=== PATIENT | female | born 1995 | race Caucasian/White ===

== ENCOUNTER 2025-02-01 06:06 | Day surgery (SDC) | payer OTHER, SELFPAY ==
[2025-01-25 08:50] LABS: Hemoglobin 13.3 g/dL (12.0-16.0); Mean Corp Hgb Conc. 34.1 g/dL (33.0-37.0); Mean Corpuscular Hgb 31.5 pg (27.0-31.0); Mean Corpuscular Volume 92.4 fL (81.0-99.0); Mean Platelet Volume 9.7 fL (7.4-10.4); Platelet Count 280 10^3/uL (130-400); Red Blood Cell Count 4.22 10^6/uL (4.20-5.40); Red Cell Dist. Width 12.2 % (11.5-14.5); White Blood Cell Count 5.4 10^3/uL (4.8-10.8)
[2025-01-25 09:27] LABS: Blood Urea Nitrogen 13 mg/dl (7-17); Calcium 9.5 mg/dl (8.4-10.2); Carbon Dioxide 30 mmol/L (22-30); Chloride 106 mmol/L (98-107); Glucose 87 mg/dl (70-99); Potassium 4.2 mmol/L (3.5-5.1); Sodium 143 mmol/L (135-145); eGFR > 60.00
[2025-01-25 10:16] LABS: % Basophils 0.9 % (0-2); % Eosinophils 2.6 % (0-6); % Immature Granulocytes 0.2 % (0-0.5); % Lymphocytes 45.4 % (20.5-51.1); % Monocytes 8.1 % (1.7-9.3); % Neutrophils 42.8 % (42.2-75.2); Absolute Basophils 0.1 10^3/uL (0-0.2); Absolute Eosinophils 0.1 10^3/uL (0-0.7); Absolute Lymphocytes 2.5 10^3/uL (1.2-3.4); Absolute Monocytes 0.4 10^3/uL (0.1-0.6); Absolute Neutrophils 2.3 10^3/uL (1.4-6.5); Nucleated Red Blood Cells % 0 %
[2025-01-25 13:57] VITALS: BMI 21.6
[2025-02-01] VITALS (7 sets, daily range): BP systolic 99–121; BP diastolic 60–85; BMI 21.6
[2025-02-01] MEDS: NORMOSOL-R/PLASMALYTE-A 1000 IV (07:00)
[2025-02-01] MEDS: TYLENOL 1000 MG PO (07:03)
[2025-02-01 07:22] LABS: HCG, Urine Qualitative Screen Negative
[2025-02-01] MEDS: DILAUDID 0.25 MG IV ×2 (08:39→09:00)
[2025-02-01] MEDS: DEMEROL 12.5 MG IV (09:18)
== END 2025-02-01 10:20 | disposition home or self-care (01) ==
LOC: SDS 06:06
PROVIDERS: ATTENDING PHYSICIAN Obstetrics & Gynecology; FAMILY PHYSICIAN Internal Medicine
DX: N97.1 Female infertility of tubal origin (principal)
CPT/HCPCS: 58661; 88305; 36415; 80048; 81025; 85025; 86850; 86900; 86901; C1776